=== PATIENT | female | born 1960 | race Asian ===

== ENCOUNTER 2022-09-27 08:56 | Day surgery (SDC) | payer OTHER ==
[~2022-09-27] VITALS: Ht 149.9 cm; Wt 52.6 kg
[2022-09-27] MEDS ORDERED: LIDOCAINE 2% 100 MG/5 ML UJET TP ONE (09:45)
[2022-09-27] MEDS ORDERED: fentaNYL citrate 0.05 MG/ML VIAL ONE (09:45)
[2022-09-27] MEDS ORDERED: fentaNYL citrate 0.05 MG/ML VIAL IVP ONE (12:35)
== END 2022-09-27 11:35 | disposition home or self-care (01) ==
LOC: MDS 08:56 → MMU 08:57 → MDS 11:35
PROVIDERS: ATTEND Internal Medicine Gastroenterology
DX: Z12.11 Encounter for screening for malignant neoplasm of colon (principal); K64.9 Unspecified hemorrhoids; K21.9 Gastro-esophageal reflux disease without esophagitis; B18.1 Chronic viral hepatitis B without delta-agent; E78.5 Hyperlipidemia, unspecified; Z20.822 Contact with and (suspected) exposure to COVID-19; Z79.899 Other long term (current) drug therapy
CPT/HCPCS: 45378; 87426; J3010

== ENCOUNTER 2022-10-10 11:07 | Outpatient (CLI) | payer OTHER | END 2022-10-10 20:03 | disposition home or self-care (01) | LOC: MUS 11:07 | PROVIDERS: ATTEND Internal Medicine Gastroenterology | DX: Z12.11 Encounter for screening for malignant neoplasm of colon (principal); B18.1 Chronic viral hepatitis B without delta-agent ==

== ENCOUNTER → 2022-10-18 | Outpatient (CLI) | payer OTHER | END | disposition home or self-care (01) | LOC: MUS 09:45 | PROVIDERS: ATTEND Internal Medicine Gastroenterology | DX: Z12.11 Encounter for screening for malignant neoplasm of colon (principal); B18.1 Chronic viral hepatitis B without delta-agent | CPT/HCPCS: 76705; Q0092 ==